=== PATIENT | female | born 1960 | race Caucasian/White ===

== ENCOUNTER 2017-07-27 21:55 | Inpatient (IN) | payer MEDICAID ==
[~2017-07-27] VITALS: Ht 175.3 cm; Wt 130.4 kg
[2017-07-27] MEDS ORDERED: ONDANSETRON 2MG/ML, 2ML ONE (22:03)
[2017-07-27] MEDS ORDERED: SODIUM CHLORIDE 0.9% 1,000ML IVBOLUS ONE (22:30)
[2017-07-27] MEDS ORDERED: ONDANSETRON 2MG/ML, 2ML IVPush ONE (22:30)
[2017-07-27] MEDS ORDERED: SODIUM CHLORIDE FLUSH 10ML SYR IVF ONE (22:30)
[2017-07-27 23:05] LABS: PH, VENOUS 7.365 pH (7.320-7.420)
[2017-07-27 23:12] LABS: HEMATOCRIT 38.2 % (34.6-47.8); HEMOGLOBIN 12.5 g/dL (11.7-16.4); WHITE BLOOD COUNT 7.1 x10^3/uL (3.4-10)
[2017-07-27 23:19] LABS: BLOOD UREA NITROGEN 71 mg/dL (7-18)
[2017-07-27 23:23] LABS: ASPARTATE AMINO TRANSFERASE 86 U/L (15-37)
[2017-07-27] MEDS ORDERED: PLEASE ENTER ALLERGIES MC SCH ×2 (23:45)
[2017-07-28] MEDS ORDERED: INSULIN REGULAR 100 UNITS/ML, 3ML VIAL IVPush ONE
[2017-07-28] MEDS ORDERED: NS + 20MEQ KCL 1,000 ML IV ONE ×2 (00:15)
[2017-07-28] MEDS ORDERED: INSULIN REGULAR 100 UNITS/ML, 3ML VIAL ONE (00:15)
[2017-07-28] MEDS ORDERED: GABA300C10 PO (00:17)
[2017-07-28] MEDS ORDERED: ACET650S21 PO (00:17)
[2017-07-28] MEDS ORDERED: DOXY100T9 PO (00:17)
[2017-07-28] MEDS ORDERED: FURO-93 PO (00:17)
[2017-07-28] MEDS ORDERED: POLY17PO5 PO (00:17)
[2017-07-28] MEDS ORDERED: AMLO5TAB2 PO (00:17)
[2017-07-28] MEDS ORDERED: INSU100V8 SQ (00:17)
[2017-07-28] MEDS ORDERED: HYDR-3307 PO (00:17)
[2017-07-28] MEDS ORDERED: CITA40TA12 PO (00:17)
[2017-07-28] MEDS ORDERED: LOSA25TA5 PO (00:17)
[2017-07-28] MEDS ORDERED: INSU100V13 SQ (00:17)
[2017-07-28] MEDS ORDERED: METO5TAB5 PO (00:17)
[2017-07-28] MEDS ORDERED: INSU100C5 SQ-INSULIN (00:17)
[2017-07-28] MEDS ORDERED: MULT-658 PO (00:17)
[2017-07-28] MEDS ORDERED: ALPR0.254 PO (00:17)
[2017-07-28] MEDS ORDERED: INSULIN REGULAR 100 UNITS/ML, 3ML VIAL SQ-INSULIN SCH (00:30)
[2017-07-28] MEDS: SODIUM CHLORIDE 0.9% 1,000 ML IV SCH ×3 (00:40→13:46)
[2017-07-28] MEDS: GABAPENTIN 300 MG CAPSULE PO SCH ×4 (01:00→20:35)
[2017-07-28] MEDS ORDERED: DEXTROSE 50%, 50ML SYRINGE IVPush PRN (01:00)
[2017-07-28] MEDS ORDERED: DEXTROSE 4 GM TAB.CHEW PO PRN (01:00)
[2017-07-28] MEDS ORDERED: INSULIN DETEMIR 100 UNITS/ML, PEN SQ-INSULIN SCH ×2 (01:00→21:00)
[2017-07-28] MEDS: HYDROcodone/APAP 10/325 MG TABLET PO SCH ×6 (01:00→23:51)
[2017-07-28] MEDS ORDERED: ACETAMINOPHEN 325 MG TABLET PO PRN (01:00)
[2017-07-28] MEDS ORDERED: ONDANSETRON 2MG/ML, 2ML IVPush PRN (01:00)
[2017-07-28] MEDS ORDERED: GLUCAGON 1 MG IM PRN (01:00)
[2017-07-28] MEDS ORDERED: BISACODYL 10 MG SUPP PR PRN (01:00)
[2017-07-28 02:53] VITALS: BP 110/70
[2017-07-28] MEDS: HEPARIN 5,000 UNITS/ML, 1ML SQ SCH ×3 (03:28→20:06)
[2017-07-28] MEDS: INSULIN ASPART 100 UNITS/ML, PEN SQ-INSULIN SCH ×4 (03:29→20:39)
[2017-07-28 04:52] LABS: HEMATOCRIT 38.8 % (34.6-47.8); HEMOGLOBIN 12.7 g/dL (11.7-16.4); WHITE BLOOD COUNT 8.2 x10^3/uL (3.4-10)
[2017-07-28 05:04] LABS: BLOOD UREA NITROGEN 68 mg/dL (7-18)
[2017-07-28 05:07] LABS: ASPARTATE AMINO TRANSFERASE 74 U/L (15-37)
[2017-07-28 07:32] VITALS: BP 121/55
[2017-07-28] MEDS ORDERED: LOSARTAN 25MG TABLET PO SCH (09:00)
[2017-07-28] MEDS ORDERED: METOLAZONE 5 MG TABLET PO SCH (09:00)
[2017-07-28] MEDS ORDERED: FUROSEMIDE 20 MG TABLET PO SCH (09:00)
[2017-07-28] MEDS: AMLODIPINE 5 MG TABLET PO SCH (09:18)
[2017-07-28] MEDS: CITALOPRAM 20 MG TABLET PO SCH (09:18)
[2017-07-28] MEDS: SENNA/DOCUSATE TABLET PO SCH (09:18)
[2017-07-28] MEDS: POLYETHYLENE GLYCOL 17 GM PACKET PO SCH (09:18)
[2017-07-28] MEDS: DOXYCYCLINE 100MG TABLET PO SCH ×2 (09:18→20:35)
[2017-07-28] MEDS: SODIUM CHLORIDE FLUSH 10ML SYR IVF SCH ×2 (09:20→20:36)
[2017-07-28] MEDS: MULTIVITAMIN 1 TABLET PO SCH (09:20)
[2017-07-28 12:59] VITALS: BP 104/65
[2017-07-28 20:09] VITALS: BP 121/68
[2017-07-29] VITALS (11 sets, daily range): BP systolic 103–129; BP diastolic 58–88
[2017-07-29] MEDS: INSULIN ASPART 100 UNITS/ML, PEN SQ-INSULIN SCH ×5 (03:00→21:32)
[2017-07-29] MEDS: HYDROcodone/APAP 10/325 MG TABLET PO SCH ×5 (03:26→21:14)
[2017-07-29] MEDS: HEPARIN 5,000 UNITS/ML, 1ML SQ SCH ×3 (03:27→19:58)
[2017-07-29] MEDS ORDERED: DEXTROSE 50%, 50ML VIAL ONE (03:54)
[2017-07-29] MEDS ORDERED: DEXTROSE 50%, 50ML SYRINGE IVPush ONE (04:00)
[2017-07-29 04:25] LABS: BLOOD UREA NITROGEN 51 mg/dL (7-18); GLUCOSE, FASTING 79 mg/dL (74-106)
[2017-07-29] MEDS: AMLODIPINE 5 MG TABLET PO SCH (08:33)
[2017-07-29] MEDS: POLYETHYLENE GLYCOL 17 GM PACKET PO SCH (08:33)
[2017-07-29] MEDS: GABAPENTIN 300 MG CAPSULE PO SCH ×3 (08:33→21:14)
[2017-07-29] MEDS: SODIUM CHLORIDE FLUSH 10ML SYR IVF SCH ×2 (08:33→21:00)
[2017-07-29] MEDS: MULTIVITAMIN 1 TABLET PO SCH (08:33)
[2017-07-29] MEDS: DOXYCYCLINE 100MG TABLET PO SCH ×2 (08:33→21:14)
[2017-07-29] MEDS: SENNA/DOCUSATE TABLET PO SCH (08:33)
[2017-07-29] MEDS: CITALOPRAM 20 MG TABLET PO SCH (08:33)
[2017-07-29] MEDS: POTASSIUM CHLORIDE 20 MEQ TAB.ER.PRT PO SCH ×2 (13:25→16:24)
[2017-07-30 01:00] VITALS: BP 125/68
[2017-07-30] MEDS: HYDROcodone/APAP 10/325 MG TABLET PO SCH ×6 (01:21→21:26)
[2017-07-30] MEDS: HEPARIN 5,000 UNITS/ML, 1ML SQ SCH ×3 (03:21→19:19)
[2017-07-30 06:29] LABS: BLOOD UREA NITROGEN 38 mg/dL (7-18)
[2017-07-30] MEDS: INSULIN ASPART 100 UNITS/ML, PEN SQ-INSULIN SCH ×4 (07:33→20:17)
[2017-07-30] MEDS: POTASSIUM CHLORIDE 20 MEQ TAB.ER.PRT PO SCH ×2 (07:34→17:00)
[2017-07-30 07:41] VITALS: BP 118/72
[2017-07-30] MEDS: SODIUM CHLORIDE FLUSH 10ML SYR IVF SCH ×2 (08:45→20:16)
[2017-07-30] MEDS: CITALOPRAM 20 MG TABLET PO SCH (08:45)
[2017-07-30] MEDS: POLYETHYLENE GLYCOL 17 GM PACKET PO SCH (08:45)
[2017-07-30] MEDS: SENNA/DOCUSATE TABLET PO SCH (08:46)
[2017-07-30] MEDS: GABAPENTIN 300 MG CAPSULE PO SCH ×3 (08:46→20:16)
[2017-07-30] MEDS: MULTIVITAMIN 1 TABLET PO SCH (08:46)
[2017-07-30] MEDS: AMLODIPINE 5 MG TABLET PO SCH (08:46)
[2017-07-30] MEDS: DOXYCYCLINE 100MG TABLET PO SCH ×2 (08:48→20:16)
[2017-07-30 13:48] VITALS: BP 119/72
[2017-07-30] MEDS: INSULIN DETEMIR 100 UNITS/ML, PEN SQ-INSULIN SCH (16:30)
[2017-07-30 18:35] VITALS: BP 125/74
[2017-07-31] MEDS: HYDROcodone/APAP 10/325 MG TABLET PO SCH ×4 (01:36→14:22)
[2017-07-31 02:05] VITALS: BP 120/74
[2017-07-31] MEDS: HEPARIN 5,000 UNITS/ML, 1ML SQ SCH ×2 (04:22→12:09)
[2017-07-31] MEDS: INSULIN DETEMIR 100 UNITS/ML, PEN SQ-INSULIN SCH ×2 (04:29→15:58)
[2017-07-31 05:14] LABS: BLOOD UREA NITROGEN 34 mg/dL (7-18)
[2017-07-31 07:50] VITALS: BP 106/69
[2017-07-31] MEDS: INSULIN ASPART 100 UNITS/ML, PEN SQ-INSULIN SCH ×3 (08:11→15:58)
[2017-07-31] MEDS: MULTIVITAMIN 1 TABLET PO SCH (08:21)
[2017-07-31] MEDS: GABAPENTIN 300 MG CAPSULE PO SCH ×2 (08:22→15:52)
[2017-07-31] MEDS: CITALOPRAM 20 MG TABLET PO SCH (08:22)
[2017-07-31] MEDS: AMLODIPINE 5 MG TABLET PO SCH (08:22)
[2017-07-31] MEDS: SENNA/DOCUSATE TABLET PO SCH (08:23)
[2017-07-31] MEDS: DOXYCYCLINE 100MG TABLET PO SCH (08:23)
[2017-07-31] MEDS: POLYETHYLENE GLYCOL 17 GM PACKET PO SCH (08:23)
[2017-07-31] MEDS: SODIUM CHLORIDE FLUSH 10ML SYR IVF SCH (08:27)
[2017-07-31] MEDS ORDERED: INSU100V13 SQ (12:16)
[2017-07-31 12:55] VITALS: BP 114/74
[2017-07-31 16:00] VITALS: BP 132/83
== END 2017-07-31 16:48 | DRG 637 ==
LOC: ED 07-28 00:14 → EDIP 07-28 00:40 → 4NOR 07-28 02:26
PROVIDERS: ADMIT Hospitalist; ATTEND Family Medicine
PROC: 0T9B70Z Drainage of Bladder with Drainage Device, Via Natural or Artificial Opening (ICD-10-PCS; principal; 2017-07-28)
DX: E11.00 Type 2 diabetes mellitus with hyperosmolarity without nonketotic hyperglycemic-hyperosmolar coma (NKHHC) (principal); N17.0 Acute kidney failure with tubular necrosis; E44.1 Mild protein-calorie malnutrition; Z68.41 Body mass index [BMI] 40.0-44.9, adult; E87.1 Hypo-osmolality and hyponatremia; E11.65 Type 2 diabetes mellitus with hyperglycemia; E66.9 Obesity, unspecified; E86.0 Dehydration; F32.9 Major depressive disorder, single episode, unspecified; I10 Essential (primary) hypertension; Z80.0 Family history of malignant neoplasm of digestive organs; Z83.3 Family history of diabetes mellitus; E11.610 Type 2 diabetes mellitus with diabetic neuropathic arthropathy; S91.309A Unspecified open wound, unspecified foot, initial encounter
CPT/HCPCS: 36415; 71010; 80048; 80053; 81003; 82010; 82040; 82803; 82947; 82962; 83036; 83690; 83735; 83930; 84295; 85025; 96361; 96365; 96375; J1644; J1815; J2405; J3480; J7030